=== PATIENT | female | born 1995 | race Hispanic/Latino ===

== ENCOUNTER 2021-07-23 17:55 | Emergency (ER) | payer OTHER ==
[~2021-07-23] VITALS: Ht 396.2 cm; Wt 60.8 kg
[2021-07-23 18:29] LABS: APPEARANCE,URINE Clear (CLEAR); BILIRUBIN,URINE Negative (NEGATIVE); COLOR,URINE Yellow (YELLOW); GLUCOSE, URINE (UA) Negative (NEGATIVE); KETONES,URINE Trace mg/dL (NEGATIVE); LEUKOCYTE ESTERASE ,URINE Moderate (NEGATIVE); NITRATE,URINE Negative (NEGATIVE); OCCULT BLOOD,URINE Negative (NEGATIVE); PROTEIN,URINE Trace mg/dL (NEGATIVE)
[2021-07-23 18:33] LABS: HCG,QUAL RESULT NEGATIVE (NEGATIVE)
[2021-07-23 18:36] LABS: BACTERIA,URINE Few /HPF (None Seen); MUCUS,URINE Moderate LPF (None Seen); RBC,URINE 0-1 /HPF (0-1)
[2021-07-23] MEDS ORDERED: LIDOCAINE HCL MPF 1% 5ML VIAL ONE (18:55)
[2021-07-23] MEDS ORDERED: FLUCONAZOLE 100 MG TAB PO ONE (19:00)
[2021-07-23] MEDS ORDERED: PHENAZOPYRIDINE HCL 200 MG TABLET PO ONE (19:00)
[2021-07-23] MEDS ORDERED: ACETAMINOPHEN 500 MG TABLET PO ONE (19:00)
[2021-07-23] MEDS ORDERED: CEFTRIAXONE 1G VIAL IVP ONE (19:00)
[2021-07-23] MEDS ORDERED: PHEN-847 PO (19:23)
[2021-07-23] MEDS ORDERED: CEPH500B PO (19:23)
[2021-07-23] MEDS ORDERED: ACET-2247 PO (19:23)
[2021-07-23] MEDS ORDERED: NIRM1TAB PO (19:23)
[2021-07-23] MEDS ORDERED: MICO200S VG (19:36)
[2021-07-23 19:47] VITALS: BP 143/90
== END 2021-07-23 20:14 | disposition home or self-care (01) ==
LOC: EDH 17:55
DX: U07.1 COVID-19 (principal); N39.0 Urinary tract infection, site not specified
CPT/HCPCS: 81001; 81025; 87088; 87426; 87880; 96372; 99284; J0696 ×2; J3490